=== PATIENT | female | born 1970 | race Caucasian/White ===

== ENCOUNTER 2020-02-14 07:22 | Day surgery (SDC) | payer BC ==
[~2020-02-14] VITALS: Ht 162.6 cm; Wt 80.7 kg
[2020-02-14 07:44] VITALS: BP 117/85; PULSE 72; TEMP 98.3
[2020-02-14] MEDS ORDERED: MIRENA52 MG IY (07:49)
[2020-02-14] MEDS ORDERED: SYNTHROID0.125 MG/T PO (07:50)
[2020-02-14] MEDS ORDERED: DINO-LIFE1 CTB PO (07:51)
[2020-02-14] MEDS ORDERED: BENADRYL50 MG PO (07:52)
[2020-02-14] MEDS ORDERED: BENTYL 20MG20 MG/TAB PO (07:52)
[2020-02-14] MEDS ORDERED: EFFEXOR 75M75 MG/TAB PO (07:53)
[2020-02-14] MEDS ORDERED: EFFEXOR-XR150 MG PO (07:53)
[2020-02-14] MEDS ORDERED: EFFEXOR XR75 MG/CAP PO (07:54)
[2020-02-14] MEDS ORDERED: KLONOPIN 1MG1 MG PO (07:55)
[2020-02-14] MEDS ORDERED: FLEXERIL 1010 MG/TAB PO (07:55)
[2020-02-14 09:20] VITALS: BP 123/67; PULSE 69; TEMP 97.5
[2020-02-14 09:30] VITALS: BP 105/63; PULSE 66
[2020-02-14 09:45] VITALS: BP 96/66; PULSE 65
[2020-02-14 10:00] VITALS: BP 113/69; PULSE 72
== END 2020-02-14 10:15 | disposition home or self-care (01) ==
LOC: SDCO 07:22
DX: R19.7 Diarrhea, unspecified (principal); K58.9 Irritable bowel syndrome, unspecified; F41.9 Anxiety disorder, unspecified; F32.9 Major depressive disorder, single episode, unspecified; Z87.891 Personal history of nicotine dependence; Z20.828 Contact with and (suspected) exposure to other viral communicable diseases
CPT/HCPCS: J2250; J2405; J3010; J7030